=== PATIENT | male | born 1955 | race Caucasian/White ===

== ENCOUNTER 2016-06-13 17:26 | Emergency (ER) | payer OTHER ==
[~2016-06-13 17:26] MED LIST: ACETSUP650 PR; ASAB PO; CRESTOR10 PO; DSS PO; FLONASE NAS; FOLIC PO; GLUCOPHAGE1000 MG PO; GLUCOSAMINEPO PO; JANUMET1 TA1 PO; LANTUS SC; LEVEMIR SC; LIPITOR20 PO; LOVENOX40 SC; LYRICA75 PO; MELA3 PO; METHOC500B PO; MULTI-VIT HP OR; NEUR300 PO; NOVOLOG SC; OCEAN NAS; PCET PO; PERCOCET1 TA4 PO; PR25 PO; PROTONIX PO; REG5 PO; SENTAB PO; TYLENOL 8 HR650 MG PO; VOLT75 PO; ZOFRAN4 PO
== END 2016-06-13 17:35 | disposition home or self-care (01) ==
LOC: ER 17:26
DX: M54.2 Cervicalgia (principal); E11.40 Type 2 diabetes mellitus with diabetic neuropathy, unspecified; G62.9 Polyneuropathy, unspecified; Z86.73 Personal history of transient ischemic attack (TIA), and cerebral infarction without residual deficits; Z79.82 Long term (current) use of aspirin; Z79.4 Long term (current) use of insulin; Z79.899 Other long term (current) drug therapy; W19.XXXA Unspecified fall, initial encounter
CPT/HCPCS: 72125; 96372; 99284; A9270-GY